=== PATIENT | female | born 1985 | race Caucasian/White ===

== ENCOUNTER 2018-07-17 20:00 | Inpatient (IN) | payer OTHER ==
[~2018-07-17] VITALS: Ht 162.6 cm; Wt 77.1 kg
[2018-07-17] MEDS: LR 1,000 ML IV SCH (20:20)
[2018-07-17] MEDS ORDERED: LR 500 ML IV ONE (20:31)
[2018-07-17] MEDS ORDERED: OXYTOCIN/0.9 % SODIUM CHLORIDE 1,000 ML IV SCH (20:31)
[2018-07-17] MEDS ORDERED: TERBUTALINE SULFATE 1 MG/ML VIAL SUBCUT ONE (20:45)
[2018-07-17 21:15] LABS: BASOPHILS # (AUTO) 0.1 K/uL (0.0-0.2); BASOPHILS % (AUTO) 0.9 % (0.0-2.0); EOSINOPHILS # (AUTO) 0.1 K/uL (0.0-0.4); EOSINOPHILS % (AUTO) 0.8 % (0.0-4.0); HEMOGLOBIN 10.7 g/dL (12.0-16.0); LYMPHOCYTES % (AUTO) 21.9 % (20.5-51.5); MEAN CORPUSCULAR HEMOGLOBIN 29 pg (27-31); MEAN CORPUSCULAR HGB CONC 33 % (32-36); MEAN CORPUSCULAR VOLUME 89 fL (79.0-98.0); MONOCYTES % (AUTO) 7.4 % (1.7-9.3); NEUTROPHILS # (AUTO) 9.7 K/uL (1.8-7.7); PLATELET COUNT (AUTO) 179 K/uL (130-430); RED CELL DISTRIBUTION WIDTH 12.4 % (9.0-15.0); WHITE BLOOD COUNT (AUTO) 13.9 K/uL (4.8-10.8)
[2018-07-18] MEDS: NALBUPHINE HCL 10 MG/ML AMP IM PRN ×2 (00:33→05:01)
[2018-07-18] MEDS ORDERED: AMPICILLIN SODIUM 2 GM in NS 100 ML IV ONE (01:45)
[2018-07-18] MEDS ORDERED: AMPICILLIN SODIUM 2 GM VIAL ONE (01:55)
[2018-07-18] MEDS: LR 1,000 ML IV SCH (04:50)
[2018-07-18] MEDS ORDERED: AMPICILLIN SODIUM 1 GM VIAL ONE (05:27)
[2018-07-18] MEDS ORDERED: AMPICILLIN SODIUM 1 GM in NS 50 ML IV SCH (06:00)
[2018-07-18] MEDS ORDERED: OXYTOCIN/0.9 % SODIUM CHLORIDE 1,000 ML IV ONE (08:06)
[2018-07-18] MEDS ORDERED: OXYTOCIN/0.9 % SODIUM CHLORIDE 1,000 ML IV SCH (08:06)
[2018-07-18] MEDS ORDERED: WITCH HAZEL LEAF 1 MED.PAD MED.PAD TP PRN (08:15)
[2018-07-18] MEDS ORDERED: ANUSOL 1 EA SUPP.RECT (PREPARATION H) RC PRN (08:15)
[2018-07-18] MEDS ORDERED: DIPH-TET-PERTUS Vaccine 0.5 ML VIAL (ADACEL) I.M. PRN (08:15)
[2018-07-18] MEDS ORDERED: HYDROcodone/ACETAMIN 5-325 MG TAB (NORCO/ VICODIN) PO PRN (08:15)
[2018-07-18] MEDS ORDERED: MEASLES,MUMPS&RUBELLA VACC/PF 12500 UNIT/0.5 ML VIAL SUBQ PRN (08:15)
[2018-07-18] MEDS ORDERED: OXYCODONE/ACETAMINOPHEN 5-325 TABLET PO PRN ×2 (08:15)
[2018-07-18] MEDS ORDERED: SENNOSIDES/DOCUSATE SODIUM 1 TAB TABLET(SENOKOT-S) PO PRN (08:15)
[2018-07-18] MEDS ORDERED: DOCUSATE SODIUM 100 MG CAPSULE PO PRN (08:15)
[2018-07-18] MEDS ORDERED: LANOLIN 7 GM OINT. TP PRN (08:15)
[2018-07-18] MEDS ORDERED: DERMOPLAST SPRAY TP PRN (08:15)
[2018-07-18] MEDS ORDERED: METHYLERGONOVINE MALEATE 0.2 MG TABLET PO PRN (08:15)
[2018-07-18] MEDS ORDERED: RHO(D) IMMUNE GLOBULIN/MALTOSE 1500 UNITS/1.3 ML (WINHRO) IM PRN (08:15)
[2018-07-18] MEDS ORDERED: HYDROCORTISONE 0.5%, 28.35 GM TOPICAL CREAM TP PRN (08:15)
[2018-07-18] MEDS: IBUPROFEN 600 MG TABLET PO SCH ×3 (12:15→23:00)
[2018-07-18] MEDS ORDERED: TEMAZEPAM 15 MG CAPSULE PO PRN (21:00)
[2018-07-19] MEDS: IBUPROFEN 600 MG TABLET PO SCH ×2 (05:37→12:33)
[2018-07-19 07:33] LABS: BASOPHILS % (AUTO) 0.3 % (0.0-2.0); EOSINOPHILS # (AUTO) 0.1 K/uL (0.0-0.4); EOSINOPHILS % (AUTO) 1.2 % (0.0-4.0); HEMATOCRIT 32.5 % (36-48); HEMOGLOBIN 10.6 g/dL (12.0-16.0); LYMPHOCYTES # (AUTO) 3.4 K/uL (1.0-5.5); LYMPHOCYTES % (AUTO) 27.3 % (20.5-51.5); MEAN CORPUSCULAR HEMOGLOBIN 29 pg (27-31); MEAN CORPUSCULAR HGB CONC 33 % (32-36); MEAN CORPUSCULAR VOLUME 90 fL (79.0-98.0); MONOCYTES # (AUTO) 0.8 K/uL (0.0-1.0); MONOCYTES % (AUTO) 6.5 % (1.7-9.3); NEUTROPHILS # (AUTO) 8.1 K/uL (1.8-7.7); NEUTROPHILS % (AUTO) 64.7 % (40.0-70.0); PLATELET COUNT (AUTO) 180 K/uL (130-430); RED BLOOD CELL COUNT(AUTO) 3.62 MIL/uL (4.2-6.2); RED CELL DISTRIBUTION WIDTH 12.9 % (9.0-15.0); WHITE BLOOD COUNT (AUTO) 12.4 K/uL (4.8-10.8)
== END 2018-07-19 13:15 | disposition home or self-care (01) | DRG 807 ==
LOC: SPU 20:00
PROVIDERS: ADMIT Specialist; ATTEND Specialist
PROC: 10E0XZZ Delivery of Products of Conception, External Approach (ICD-10-PCS; principal; 2018-07-17)
DX: O99.824 Streptococcus B carrier state complicating childbirth (principal); Z37.0 Single live birth; Z3A.38 38 weeks gestation of pregnancy
CPT/HCPCS: 36415; 81002-TC; 85025; 86592; 86886; 86900; 86901; J0290; J2300; J7120